=== PATIENT | female | born 1995 | race Caucasian/White ===

== ENCOUNTER → 2016-12-12 | Day surgery (SDC) | payer OTHER ==
[~2016-12-12] VITALS: Ht 170.2 cm; Wt 96.2 kg
[~2016-12-12] MED LIST: BACITRACIN As Ordered ONE; BUPIVACAINE HCL 0.25% 30 ML VIAL As Ordered ONE; KETOROLAC 60 MG/2 ML VIAL (J1885) As Ordered ONE; LIDOCAINE 2% INJ 100 MG/5 ML SDV (FOR ANES.) As Ordered ONE; LR 1,000 ML IV SCH; MIDAZOLAM INJ 2 MG/2 ML VIAL (J2250) As Ordered ONE; NEOMYCIN As Ordered ONE; NEOSPORIN TOP OINT 15GM As Ordered ONE; NEXP68IM SC; NS 1,000 ML IV SCH; ONDANSETRON 4MG/2ML VIAL (J2405) As Ordered ONE; POLYMYXIN B As Ordered ONE; PROPOFOL 500 MG/50 ML VIAL As Ordered ONE; SODIUM CHLORIDE 0.9% 1000 ML IV ONE; dexameTHASONE 4 MG/ML 1ML VIAL (J1100) As Ordered ONE; fentaNYL 100 MCG/2 ML INJECTION (J3010) As Ordered ONE
[2016-12-12 09:42] LABS: MEAN CORPUSCULAR HEMOGLOBIN 30.2 pg (27.0-33.0); MEAN CORPUSCULAR HGB CONC 32.5 g/dl (32.0-36.5); MEAN CORPUSCULAR VOLUME 92.8 fl (80.0-96.0); RED CELL DISTRIBUTION WIDTH 12.1 % (11.5-14.5); WHITE BLOOD COUNT 5.2 K/mm3 (4.0-10.0)
[2016-12-12 10:20] LABS: CONTROL LINE HCG INT CTR LINE PRESENT
[2016-12-12 10:32] LABS: ANION GAP 7 MEQ/L (8-16); BLOOD UREA NITROGEN 11 MG/DL (7-18); CALCIUM LEVEL 8.9 MG/DL (8.5-10.1); CARBON DIOXIDE LEVEL 26 MEQ/L (21-32); CHLORIDE LEVEL 110 MEQ/L (98-107); CREATININE FOR GFR 0.73 MG/DL (0.55-1.02); GLOMERULAR FILTRATION RATE > 60.0 (>60); GLUCOSE, FASTING 91 MG/DL (70-105); POTASSIUM SERUM 4.2 MEQ/L (3.5-5.1); SODIUM LEVEL 143 MEQ/L (136-145)
--- NOTE | 2016-12-12 12:32 | REP ---
Clinical: Foreign body retrieval. Technique: Intraoperative fluoroscopic images. Findings: Multiple intraoperative fluoroscopic images of the left humerus demonstrate the previously identified implanted control device to have been removed successfully. Total fluoroscopic time 12 seconds. Impression: Status post satisfactory removal of implanted control device. Signed by Charles Falcon MD 12/12/2016 12:24 P
[2016-12-12 12:45] VITALS: BP 99/60
--- NOTE | 2016-12-24 09:26 | RO ---
DATE OF PROCEDURE: 12/12/2016 PREOPERATIVE DIAGNOSIS: Implanted foreign body left upper forearm. POSTOPERATIVE DIAGNOSIS: Implanted foreign body upper left forearm. OPERATION PROPOSED: Removal of foreign body upper left forearm. OPERATION PERFORMED: Removal of foreign body upper left forearm. SURGEON: Dr. Alfonso Salter [employer] SUPERVISOR: Dr. Bone ANESTHESIA: Conscious sedation plus local anesthetic. Under adequate anesthesia, prepped and draped in the supine position with the left arm extended, it was sterilized and properly draped and time-out performed. We were trying to palpate the Nexplanon which had been placed two years before in the left upper forearm; however, it had migrated and x-ray indicated it was deep in the muscle area close to the bone. We digitally were able to identify, but were unable to move it to the surface of the skin in order probably remove it. Therefore, the C-arm was brought in and placed and multiple x-rays were done with a forceps in place to locate the Nexplanon foreign body. Once we were close enough on visualization with the x-ray, we put a little local anesthetic in the skin, made a rea in the skin and were able to extricate the Nexplanon without causing any trauma to the muscle, the blood vessels or the bone. A #4-0 Vicryl [id number] suture was placed in the skin area. Band-Aid was placed. The patient was sent to recovery in good condition.
== END | disposition home or self-care (01) ==
LOC: M SDC 09:12
PROVIDERS: ATTEND Obstetrics & Gynecology
DX: M79.5 Residual foreign body in soft tissue (principal); Z72.0 Tobacco use; Z91.09 Other allergy status, other than to drugs and biological substances
CPT/HCPCS: 10121; 36415; 73060; 80048; 84703; 85027; 88300; J1100; J1885; J2250; J2405; J3010